=== PATIENT | female | born 1965 | race African-American/Black ===

== ENCOUNTER 2019-07-12 17:12 | Emergency (ER) | payer OTHER ==
[~2019-07-12] VITALS: Ht 172.7 cm; Wt 136.1 kg
--- NOTE | 2019-07-12 17:35 | NUR ---
ED Nurse Note: pt presents to ED c/o cough and fevers/chills for 4 days. 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 she states that she has been coughing which makes it hard for her to breathe casusing her to feel short of breath. pt states that she has taken OTC cold meds but they have not helped her with her symptoms
[2019-07-12] MEDS ORDERED: Dexamethasone 4mg/ml vial IM ONE (17:45)
[2019-07-12] MEDS: Albuterol/Ipratropium 3ml neb HHN SCH ×5 (18:08→18:51)
[2019-07-12 18:25] VITALS: BP 134/79
[2019-07-12 18:47] LABS: BASOPHILS % (AUTO) 1.7 % (0.0-2.0); EOSINOPHILS % (AUTO) 4.1 % (0.0-3.0); HEMATOCRIT 38.7 % (37.0-47.0); HEMOGLOBIN 12.6 G/DL (12.0-16.0); MEAN CORPUSCULAR VOLUME 88 FL (80-99); NEUTROPHILS % (AUTO) 45.2 % (45.0-75.0); PLATELET COUNT 275 K/UL (150-450); RED BLOOD COUNT 4.38 M/UL (4.20-5.40); RED CELL DISTRIBUTION WIDTH 12.5 % (11.6-14.8); WHITE BLOOD COUNT 8.4 K/UL (4.8-10.8)
[2019-07-12 18:55] LABS: ANION GAP 5 mmol/L (5-15); BLOOD UREA NITROGEN 8 mg/dL (7-18); CARBON DIOXIDE 31 MMOL/L (21-32); CHLORIDE 103 MMOL/L (98-107); CREATININE 0.9 MG/DL (0.55-1.30); POTASSIUM 3.9 MMOL/L (3.5-5.1); SODIUM 139 MMOL/L (136-145)
[2019-07-12 19:00] LABS: ALANINE AMINOTRANSFERASE 18 U/L (12-78); ALBUMIN 3.3 G/DL (3.4-5.0); ALBUMIN/GLOBULIN RATIO 0.7 (1.0-2.7); ALKALINE PHOSPHATASE 82 U/L (46-116); ASPARTATE AMINO TRANSFERASE 15 U/L (15-37); BILIRUBIN,TOTAL 0.2 MG/DL (0.2-1.0)
--- NOTE | 2019-07-12 19:24 | NUR ---
HAND-OFF: Report given to WILLA Rae. pt appears to be in stable condition with her at bedside
--- NOTE | 2019-07-12 19:28 | Emergency Room Report ---
History of Present Illness General Chief Complaint: Flu Like Symptoms Source: Patient Present Illness HPI 54-year-old female with history of diabetes and hypertension controlled, here complaining of 2 days of continuous coughing with green phlegm production. Patient is actively coughing and wheezing. Denies fever and chills, sore throat , congestion. Patient has low oxygenation of 94. Is in mild distress. However all vital signs are within normal limits. Denies chest pain, palpitation, abdominal pain, nausea vomiting, dizziness and headache. Patient also has history of CHF and takes furosemide, metoprolol, benazepril, and amlodipine. Patient is compliant with her medication. Has not taken medication other than DayQuil and NyQuil for symptom relief. Allergies: Coded Allergies: No Known Allergies (Unverified , 07/12/19) Patient History Past Medical History: see triage record Past Surgical History: unable to obtain Pertinent Family History: none Last Menstrual Period: 06/03/2019 Now: No Immunizations: UTD Reviewed Nursing Documentation: PMH: Agreed; PSxH: Agreed Nursing Documentation-PMH Past Medical History: No History, Except For Hx Hypertension: Yes Review of Systems All Other Systems: negative except mentioned in HPI Physical Exam Vital Signs Date Time Temp Pulse Resp B/P (MAP) Pulse Ox O2 Delivery O2 Flow Rate FiO2 07/12/19 17:41 98.2 93 20 159/91 (113) 94 Room Air 07/12/19 18:01 21 Sp02 EP Interpretation: reviewed, normal General Appearance: no apparent distress, alert, GCS 15, non-toxic Head: normocephalic, atraumatic Eyes: bilateral eye normal inspection, bilateral eye PERRL ENT: hearing grossly normal, normal pharynx, no angioedema, normal voice, uvula midline Neck: normal inspection, full range of motion, supple, thyroid normal, supple/ symm/no masses Respiratory: chest non-tender, no rhonchi, no retraction, no accessory muscle use, speaking full sentences, wheezing Cardiovascular #1: normal peripheral pulses, regular rate, rhythm, no edema, no murmur Gastrointestinal: normal bowel sounds, non tender, soft, non-distended, no guarding, no rebound Genitourinary: normal inspection, no CVA tenderness Musculoskeletal: back normal, gait/station normal, normal range of motion, non- tender, no calf tenderness Neurologic: alert, oriented x3, responsive, motor strength/tone normal, sensory intact, speech normal Psychiatric: judgement/insight normal, memory normal, mood/affect normal, no suicidal/homicidal ideation Skin: no rash Lymphatic: no adenopathy Medical Decision Making PA Attestation Diagnosis and treatment plans were reviewed and discussed with my supervising physician Dr. Pugh Diagnostic Impression: Primary Impression: URI (upper respiratory infection) ER Course 54-year-old female with history of diabetes and hypertension controlled, here complaining of 2 days of continuous coughing with green phlegm production. Patient is actively coughing and wheezing. Denies fever and chills, sore throat , congestion. Patient has low oxygenation of 94. Is in mild distress. However all vital signs are within normal limits. Denies chest pain, palpitation, abdominal pain, nausea vomiting, dizziness and headache. Patient also has history of CHF and takes furosemide, metoprolol, benazepril, and amlodipine. Patient is compliant with her medication. Has not taken medication other than DayQuil and NyQuil for symptom relief. Ddx considered but are not limited to: strep pharyngitis, URI, tonsillitis, bronchitis, pneumonia, CHF exacerbation Vital signs: are WNL, pt. is afebrile H&PE are most consistent with: URI presumed to be bacterial due to patient immune status ORDERS: Rapid influenza test, CBC, CMP, UA, tox screen, chest x-ray, EKG, azithromycin, Tessalon Perles, albuterol, Medrol Dosepak ED INTERVENTIONS: 6 doses of breathing treatment, dexamethasone DISCHARGE: At this time pt. is stable for d/c to home. Will provide printed patient care instructions, and any necessary prescriptions. Care plan and follow up instructions have been discussed with the patient prior to discharge. 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 Patient was sent risks of taking the medications. Patient stable at time of discharge. Advised to return to emergency room if worsening symptoms. EKG Diagnostic Results Rate: normal Rhythm: NSR ST Segments: no acute changes Chest X-Ray Diagnostic Results Chest X-Ray Diagnostic Results : Chest X-Ray Ordered: Yes # of Views/Limited/Complete: 1 View Indication: Shortness of Breath EP Interpretation: Yes PA Xray: Interpretation reviewed, by supervising MD, and agrees with findings. Interpretation: no consolidation, no effusion, no pneumothorax Impression: No acute disease Electronically Signed by: Musa Christensen PA-C Last Vital Signs Date Time Temp Pulse Resp B/P (MAP) Pulse Ox O2 Delivery O2 Flow Rate FiO2 07/12/19 19:01 103 20 99 Room Air 21 07/12/19 18:25 97.8 134/79 Disposition: HOME, SELF-CARE Condition: Stable Scripts Methylprednisolone (Methylprednisolone*) 4MG Dspk 4 MG ORAL DIRECTED for 6 Days, #21 EA 0 Refills Day 1: Two tablets before breakfast, one after lunch, one after dinner, and two at bedtime. If started late in the day, take all six tablets at once or divide into two or three doses, unless otherwise directed by prescriber. Day 2: One tablet before breakfast, one after lunch, one after dinner, and two at bedtime Day 3: One tablet before breakfast, one after lunch, one after dinner, and one at bedtime Day 4: One tablet before breakfast, one after lunch, and one at bedtime Day 5: One tablet before breakfast and one at bedtime Day 6: One tablet before breakfast Prov: Musa Beasley 07/12/19 Benzonatate* (TESSALON PERLE*) 100 Mg Capsule 100 MG ORAL THREE TIMES A DAY, #30 PERLE Prov: Musa Beasley 07/12/19 Albuterol Sulfate (VENTOLIN HFA) 18 Gm Hfa.aer.ad 2 PUFFS INH EVERY 6 HOURS, #18 GM 0 Refills Prov: Musa Beasley 07/12/19 Azithromycin* (ZITHROMAX*) 250 Mg Tablet 250 MG ORAL DAILY, #6 TAB 0 Refills Take two tables once daily for 1 day, then one tablet once daily for 4 days. Prov: Musa Beasley 07/12/19 Patient Instructions: Upper Respiratory Infection, Infant Additional Instructions: Take medication as directed follow-up with your primary care provider if worsening symptoms return to the emergency room Musa Beasley Jul 12, 2019 19:28
[2019-07-12] MEDS ORDERED: MEDROL DOSEPAK4 MG ORAL (19:29)
[2019-07-12] MEDS ORDERED: ZITHROMAX250 MG ORAL (19:29)
[2019-07-12] MEDS ORDERED: TESSALON PERLE100 MG ORAL (19:29)
[2019-07-12] MEDS ORDERED: VENTOLIN HFA18 GM INH (19:29)
[2019-07-12 19:45] VITALS: BP 141/72
--- NOTE | 2019-07-12 19:50 | NUR ---
ER DISCHARGE NOTE: Patient is cleared to be discharged per ERMD, pt is aox4, on room air, with stable vital signs. pt was given dc and prescription instructions, pt was able to verbalize understanding, pt id band and iv site removed without complications. pt is able to ambulate with steady gait. pt took all belongings.
--- NOTE | 2019-07-13 12:44 | Diagnostic Imaging Report ---
Indication: Dyspnea Comparison: None A single view chest radiograph was obtained. Findings: Cardiomediastinal appearance is prominent. The lungs are clear. Pulmonary vascularity is appropriate. The diaphragmatic contour is smooth and costophrenic angles are sharp. No pleural effusions are identified. The bones are unremarkable. Impression: No acute findings. Cardiomegaly
--- NOTE | 2019-07-14 17:34 | Cardiology Report ---
APPROVED REPORT EKG Measurement Heart [id number] Normal sinus rhythm Voltage criteria for left ventricular hypertrophy Inferior infarct, age undetermined Abnormal ECG
== END 2019-07-12 19:45 | disposition home or self-care (01) ==
LOC: EMR 19:45
DX: J06.9 Acute upper respiratory infection, unspecified (principal); R06.02 Shortness of breath; E11.9 Type 2 diabetes mellitus without complications; I11.0 Hypertensive heart disease with heart failure; I50.9 Heart failure, unspecified
CPT/HCPCS: 36415; 71045; 80053; 84484; 85025; 86710; 93005; 94640; 94664; 96372; 99284; J1100; J7620